=== PATIENT | female | born 1990 | race Caucasian/White ===

== ENCOUNTER 2016-07-08 18:14 | Inpatient (IN) | payer OTHER ==
[2016-07-08] MEDS ORDERED: ACETAMINOPHEN 325 MG TABLET PO ONE (19:33)
[2016-07-08] MEDS ORDERED: NORMAL SALINE 1000 ML 1,000 ML IV ONE ×2 (19:33→22:36)
--- NOTE | 2016-07-08 19:35 | ER Document Report ---
ED Medical Screen (RME) - General Stated Complaint: FLU LIKE SYMPTOMS Mode of Arrival: Ambulatory Information source: Patient Notes: Patient presents complaining of abdominal cramping, fever and diarrhea. Symptoms started yesterday. No additional sick contacts. Patient claims of nausea without any vomiting. Pt complains of pain with standing up on the way. hx: None I have greeted and performed a rapid initial assessment of this patient. A comprehensive ED assessment and evaluation of the patient, analysis of test results and completion of the medical decision making process will be conducted by additional ED providers. - Related Data Allergies/Adverse Reactions: erythromycin base [From Pediazole] Allergy (Verified 07/08/16 19:32) nitrofurantoin [From Macrobid] Allergy (Verified 07/08/16 19:32) sulfisoxazole [From Pediazole] Allergy (Verified 07/08/16 19:32) Physical Exam - Vital signs Vitals: Temp Pulse Resp BP Pulse Ox 102.8 F H 131 H 14 126/96 H 100 07/08/16 18:20 07/08/16 18:20 07/08/16 18:20 07/08/16 18:20 07/08/16 18:20 - Abdominal Tenderness: Tender - Periumbilical Notes: Patient declines sitting upright fully due to discomfort. Course - Vital Signs Vital signs: Temp Pulse Resp BP Pulse Ox 102.8 F H 131 H 14 126/96 H 100 07/08/16 18:20 07/08/16 18:20 07/08/16 18:20 07/08/16 18:20 07/08/16 18:20
[2016-07-08 21:05] LABS: HEMATOCRIT 42.9 % (36.0-47.0); HEMOGLOBIN 14.6 g/dL (12.0-15.5); HGB HCT DIFFERENCE 0.9; MEAN CORPUSCULAR HEMOGLOBIN 28.7 pg (27.0-33.4); MEAN CORPUSCULAR HGB CONC 34.1 g/dL (32.0-36.0); MEAN CORPUSCULAR VOLUME 84 fl (80-97); RED CELL DISTRIBUTION WIDTH 12.8 % (11.5-14.0); WHITE BLOOD COUNT 25.1 10^3/uL (4.0-10.5)
--- NOTE | 2016-07-08 21:05 | ER Document Report ---
ED Fever - General Time seen by provider: 21:00 Mode of Arrival: Ambulatory Information source: Patient TRAVEL OUTSIDE OF THE [place] IN LAST 30 DAYS: No - HPI Patient complains to provider of: fever Associated symptoms: Other - See above <OANH ESPITIA - Last Filed: 07/08/16 23:15> <DAPHNE BASHIR - Last Filed: 07/09/16 03:17> - General Chief Complaint: Fever Stated Complaint: fever Notes: Patient is a 25 year old female who presents to the emergency department complaining of a fever onset last night. Patient reports the fever was between 103.3 and 104.9 last night. Patient also complains of abdominal cramping, belly "rumbling", bloating, diarrhea (liquid), nausea, headache, intermittent cough. Patient denies sore throat, rhinorrhea, dysuria, back pain, vomiting, and . Patient states that she has eaten a small amount today and that she has not urinated much. Patient reports she traveled to [place] last month and has had long driving trips recently. (OANH ESPITIA) - Related Data Allergies/Adverse Reactions: erythromycin base [From Pediazole] Allergy (Verified 07/08/16 19:32) nitrofurantoin [From Macrobid] Allergy (Verified 07/08/16 19:32) sulfisoxazole [From Pediazole] Allergy (Verified 07/08/16 19:32) Past Medical History - General Information source: Patient - Social History Smoking Status: Never Smoker Chew tobacco use (# tins/day): No Frequency of alcohol use: Social Drug Abuse: None Family History: Reviewed & Not Pertinent Surgical Hx: Negative - Immunizations Hx Diphtheria, Pertussis, Tetanus Vaccination: - unsure <OANH ESPITIA - Last Filed: 07/08/16 23:15> Review of Systems - Review of Systems Constitutional: See HPI, Fever EENT: denies: Nose congestion, Throat pain Cardiovascular: No symptoms reported Respiratory: No symptoms reported Gastrointestinal: See HPI, Abdomen distended - bloating, Abdominal pain, Diarrhea, Nausea. denies: Vomiting Genitourinary: denies: Dysuria Female Genitourinary: No symptoms reported Musculoskeletal: denies: Back pain Skin: No symptoms reported Hematologic/Lymphatic: No symptoms reported Neurological/Psychological: See HPI, Headaches -: Yes All other systems reviewed and negative <OANH ESPITIA - Last Filed: 07/08/16 23:15> Physical Exam - Vital signs Interpretation: Tachycardic, Febrile - General General appearance: Appears well, Alert - HEENT Head: Normocephalic, Atraumatic - Respiratory Respiratory status: No respiratory distress Chest status: Nontender Breath sounds: Normal Chest palpation: Normal - Cardiovascular Rhythm: Tachycardia Heart sounds: Normal auscultation Murmur: No - Abdominal Inspection: Normal Distension: No distension Bowel sounds: Normal Tenderness: Tender - Mild diffuse tenderness to palpation Organomegaly: No organomegaly - Extremities General upper extremity: Normal inspection General lower extremity: Normal inspection - Neurological Neuro grossly intact: Yes Cognition: Normal Orientation: AAOx4 [place] Coma Scale Eye Opening: Spontaneous [place] Coma Scale Verbal: Oriented [place] Coma Scale Motor: Obeys Commands [place] Coma Scale Total: 15 Speech: Normal - Psychological Associated symptoms: Normal affect, Normal mood - Skin Skin Temperature: Warm Skin Moisture: Dry Skin Color: Normal <OANH ESPITIA - Last Filed: 07/08/16 23:15> Course - Laboratory Result Diagrams: 07/08/16 19:55 07/08/16 21:15 <OANH ESPITIA - Last Filed: 07/08/16 23:15> - Laboratory Result Diagrams: 07/08/16 19:55 07/08/16 21:15 <DAPHNE BASHIR - Last Filed: 07/09/16 03:17> - Re-evaluation Re-evalutation: 07/08/16 22:52 Patient is a 25-year-old female who comes in with some mild abdominal cramping and diarrhea. Patient with leukocytosis. Patient given fluids and Zofran. Zofran did not help. Patient will be given Reglan. 07/09/16 01:55 Patient is feeling better after Reglan. CT showing pancolitis. Patient has had stool culture sent. Patient will be started on Cipro Flagyl. Patient is still having voluminous diarrhea. Patient acidotic on blood work. Will be admitted for dehydration. 07/09/16 03:00 Discussed with the hospitalist service. Stable at time of admission. (DAPHNE BASHIR) - Vital Signs Vital signs: Temp Pulse Resp BP Pulse Ox 102.8 F H 131 H 20 105/61 98 07/08/16 18:20 07/08/16 18:20 07/09/16 02:27 07/09/16 02:27 07/09/16 02:27 - Laboratory Laboratory results interpreted by me: 07/08/16 07/08/16 07/08/16 19:55 21:15 21:15 WBC 25.1 H Seg Neuts % (Manual) 91 H Lymphocytes % (Manual) 3 L Monocytes % (Manual) 1 L Abs Neuts (Manual) 23.8 H PT 20.6 H APTT 38.3 H VBG pCO2 27.9 L VBG HCO3 16.9 L Potassium Chloride Carbon Dioxide Total Protein Albumin Urine Protein Urine Ketones Urine Blood Stool for White Cells 07/08/16 07/08/16 07/08/16 21:15 21:50 21:50 WBC Seg Neuts % (Manual) Lymphocytes % (Manual) Monocytes % (Manual) Abs Neuts (Manual) PT APTT VBG pCO2 VBG HCO3 Potassium 3.3 L Chloride 108 H Carbon Dioxide 16 L Total Protein 6.0 L Albumin 3.2 L Urine Protein 30 H Urine Ketones 20 H Urine Blood MODERATE H Stool for White Cells MODERATE H Critical Care Note - Critical Care Note Total time excluding time spent on procedures (mins): 35 - evaluation and management of fever, dehydration, multiple re-evaluations, coordination of admission, counseling of patient <DAPHNE BASHIR - Last Filed: 07/09/16 03:17> Discharge <OANH ESPITIA - Last Filed: 07/08/16 23:15> - Discharge Admitting Provider: Hospitalist Unit Admitted: Medical Floor <DAPHNE BASHIR - Last Filed: 07/09/16 03:17> - Discharge Clinical Impression: Pancolitis, Dehydration Condition: Stable Disposition: ADMITTED INPATIENT Scribe Attestation: 07/09/16 03:17 I personally performed the services described in the documentation, reviewed and edited the documentation which was dictated to the scribe in my presence, and it accurately records my words and actions. (DAPHNE BASHIR) Scribe Documentation - Scribe Written by Scribe:: juaquin Zafar, 07/08/16, [id number] acting as scribe for :: Seth <OANH ESPITIA - Last Filed: 07/08/16 23:15>
[2016-07-08] MEDS ORDERED: ONDANSETRON HCL INJ/PF 4 MG/2 ML SDV IV ONE (21:07)
[2016-07-08] MEDS ORDERED: RINGERS SOLUTION,LACTATED 1,000 ML IV ONE (21:11)
[2016-07-08 21:30] LABS: BAND NEUTROPHILS % (MANUAL) 4 % (3-5); BASOPHILS % (MANUAL) 0 % (0-2); EOSINOPHILS % (MANUAL) 0 % (0-6); LYMPHOCYTES % (MANUAL) 3 % (13-45); TOTAL CELLS COUNTED 100
[2016-07-08 21:32] LABS: VENOUS BLOOD BASE EXCESS -6.4 mmol/L; VENOUS BLOOD HCO3 16.9 mmol/L (20-32); VENOUS BLOOD PCO2 27.9 mmHg (35-63); VENOUS BLOOD PH 7.4 (7.30-7.42)
[2016-07-08 21:34] LABS: RBC MORPHOLOGY COMMENT NORMO-CYTIC/CHROMIC; TOXIC GRANULATION SLIGHT
[2016-07-08 21:37] LABS: PROTHROMBIN TIME 20.6 SEC (11.4-15.4)
[2016-07-08 21:38] LABS: PARTIAL THROMBOPLASTIN TIME 38.3 SEC (23.5-35.8)
[2016-07-08 21:43] LABS: ALANINE AMINOTRANSFERASE 30 U/L (9-52); ALBUMIN 3.2 g/dL (3.5-5.0); ALKALINE PHOSPHATASE 56 U/L (38-126); ANION GAP 14 (5-19); ASPARTATE AMINO TRANSFERASE 16 U/L (14-36); BILIRUBIN,DIRECT 0.2 mg/dL (0.0-0.4); BILIRUBIN,TOTAL 0.7 mg/dL (0.2-1.3); BLOOD UREA NITROGEN 12 mg/dL (7-20); CALCIUM 8.4 mg/dL (8.4-10.2); CARBON DIOXIDE 16 mmol/L (22-30); CHLORIDE 108 mmol/L (98-107); CREATININE RESULT 0.78 mg/dL (0.52-1.25); GLUCOSE 98 mg/dL (75-110); LIPASE 32.2 U/L (23-300); POTASSIUM 3.3 mmol/L (3.6-5.0); SODIUM 137.6 mmol/L (137-145)
[2016-07-08 22:19] LABS: APPEARANCE,URINE SLIGHTLY-CLOUDY; BILIRUBIN,URINE NEGATIVE (NEGATIVE); GLUCOSE, URINE NEGATIVE (NEGATIVE); KETONES,URINE 20 mg/dL (NEGATIVE); LEUKOCYTE ESTERASE,URINE NEGATIVE (NEGATIVE); NITRITE,URINE NEGATIVE (NEGATIVE); PROTEIN,URINE 30 mg/dL (NEGATIVE); URINE SPECIFIC GRAVITY 1.027; UROBILINOGEN,URINE NEGATIVE mg/dL (<2.0)
[2016-07-08] MEDS ORDERED: METOCLOPRAMIDE HCL INJ/PF 10 MG/2 ML SDV IV ONE (22:52)
[2016-07-09] MEDS ORDERED: CIPROFLOXACIN 400 MG/D5W RTU 200 ML IV ONE (01:48)
[2016-07-09] MEDS ORDERED: METRONIDAZOLE 500 MG/NS RTU 100 ML IV ONE (01:48)
[2016-07-09] MEDS ORDERED: RINGERS SOLUTION,LACTATED 1,000 ML IV ONE (01:55)
[2016-07-09] MEDS ORDERED: DICYCLOMINE HCL 20 MG TABLET PO ONE (02:06)
[2016-07-09 03:57] LABS: ABSOLUTE LYMPHOCYTES (AUTO) 1.8 10^3/uL (0.5-4.7); ABSOLUTE MONOCYTES (AUTO) 0.5 10^3/uL (0.1-1.4); ABSOLUTE NEUT (AUTO) 12.6 10^3/uL (1.7-8.2); BASOPHILS % (AUTO) 0.2 % (0-2); EOSINOPHILS % (AUTO) 0.1 % (0-6); HGB HCT DIFFERENCE 1.3; LYMPHOCYTES % (AUTO) 11.8 % (13-45); MEAN CORPUSCULAR HEMOGLOBIN 28.8 pg (27.0-33.4); MEAN CORPUSCULAR HGB CONC 34.5 g/dL (32.0-36.0); MEAN CORPUSCULAR VOLUME 84 fl (80-97); MONOCYTES % (AUTO) 3.1 % (3-13); RED BLOOD COUNT 4.19 10^6/uL (3.72-5.28); RED CELL DISTRIBUTION WIDTH 12.6 % (11.5-14.0); SEGMENTED NEUTROPHILS % (AUTO) 84.8 % (42-78); WHITE BLOOD COUNT 14.9 10^3/uL (4.0-10.5)
[2016-07-09 04:00] LABS: ANION GAP 10 (5-19); BLOOD UREA NITROGEN 8 mg/dL (7-20); CALCIUM 8.2 mg/dL (8.4-10.2); CARBON DIOXIDE 18 mmol/L (22-30); CHLORIDE 114 mmol/L (98-107); CREATININE RESULT 0.66 mg/dL (0.52-1.25); GLUCOSE 104 mg/dL (75-110); POTASSIUM 3.3 mmol/L (3.6-5.0); SODIUM 142.1 mmol/L (137-145)
[2016-07-09] MEDS ORDERED: DEXTROSE 5%-NORMAL SALINE 1,000 ML IV PRN ×2 (04:00→08:59)
[2016-07-09] MEDS ORDERED: RINGERS SOLUTION,LACTATED 2,000 ML IV ONE (04:00)
[2016-07-09] MEDS ORDERED: PROMETHAZINE HCL INJ 25 MG/1 ML VIAL IV PRN (04:05)
--- NOTE | 2016-07-09 04:08 | PDOC H&P ---
History of Present Illness Admission Date/PCP: 07/09/16 02:16 [facility] Patient complains of: abd pain, diarrhea, fever History of Present Illness: MARK MANNING is a 25 year old female with history of recurrent urinary tract infections, but basically a not overly remarkable chronic medical history otherwise who presents to the emergency room for evaluation of approximate 24-hour history of fever to 104.9, along with cramping "rumbling" abdominal pain, discomfort, and bloating, nonbloody diarrhea, nausea with dry heaves, headache, and neck pain. Primary complaint has been any diarrhea, fever, abdominal pain, headache and neck pain. Patient has been discussed with emergency room physician who evaluated the patient. Was diagnosed with a herpes infection 2 weeks ago and started on what sounds to be an antiviral, having been given samples at the physician's office. Patient uncertain as to exactly which medication she was given. Has 2 or 3 doses left. 2 nights ago, ate at a buffet with multiple coworkers. Stated the food tasted okay. Uncertain if any coworkers having similar complaints. Travel to [place] last month. No problems until 2 nights ago, along with the herpes diagnosis 2 weeks ago. No personal or family history of Crohn's disease, ulcerative colitis, irritable bowel syndrome, or other GI tract issues. No history of MRSA or C. difficile. No recent antibiotic, other than the above-noted antiviral.. Laboratory results are listed in [employer] and are reviewed. X-ray summary results are listed below, with full report(s) reviewed. . EKG reviewed. No old EKG available for comparison. Social history/personal habits: Operated from her . 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 Occasional marijuana use. No tobacco use. When asked whether she drinks beer, whiskey, or wine, she stated "all the above." When I asked her how often she drank alcohol, she stated "too often, but not every day." Allergies/adverse reactions NKDA. Home medications no chronic daily medications. See above comments about recent probable antiviral she's been taking. REVIEW OF SYSTEMS: Constitutional: See history and present illness. Eyes: No current vision complaints. ENT: No swallowing problems or complaints. Other than mild sore throat over the last day or so. No hearing problems or complaints. Pulmonary: No current complaints. Cardiovascular: No current complaints, including chest pain. Gastrointestinal: See history and present illness. Skin: No current complaints, including rashes. Hematologic: Easy bruising. "Only when I drink." Neurologic: No current complaints, including numbness or tingling. Musculoskeletal: No current complaints, including painful joints. Psychiatric: No current complaints, including anxiety or depression. Endocrine: No current complaints, including polyuria. Genitourinary: No current complaints, including dysuria. PHYSICAL EXAMINATION: Female emergency room nurse Charlotte is present. Boyfriend is present. 5 feet 8 inches tall. 68.3 kg. BMI 22.9 kg/m. Temperature 102.6 earlier; skin feels warm but not as febrile presently. Blood pressure 106/57. Respirations are 20 and unlabored. Pulse 77 and regular. 99% saturation on room air. Well-nourished well-developed female appearing approximately her stated age. Appears not to feel very well. Slightly fatigued. Otherwise, pleasant awake alert and cooperative. Skin is warm and dry. No grossly obvious evidence of rash in areas of skin examined. No subcutaneous nodules palpated. ENT: Hearing grossly normal to normal conversation. Tongue midline on protrusion pink and slightly tacky. Eyes: No scleral icterus. Pupils equal and reactive to light at 4 mm. [place] conjunctivae. Neck is supple with mild tenderness to gentle active range of motion and palpation. Midline trachea. No palpable thyroid nodule mass enlargement or tenderness. Lymphatic: No palpable cervical or clavicular nodes. Neck and lymphatic exams limited by patient body habitus. Psychiatric: Reasonable insight into acute and chronic medical issues. Oriented to time location and why here. Lungs: Auscultation reveals clear and equal breath sounds bilaterally. No use of accessory respiratory muscles. Cardiovascular: Heart regular rate and rhythm, without gallop murmur or rub. No carotid or abdominal aortic bruits. No ankle or pedal edema. palpable dorsalis pedis pulses. Abdomen: soft, , slightly distended with positive bowel sounds. Mild diffuse tenderness, not to overly remarkable. Certainly no evidence of guarding or peritoneal signs. Unable to adequately evaluate abdomen for masses or organomegaly due to distention and discomfort.. Extremities: Feet are warm and dry. No calf tenderness to compression. No grossly obvious visual evidence of calf swelling. Gentle manipulation of lower extremities fails to reveal any obvious evidence of injury or instability to knees hips or ankles. Neurologic: Moves upper extremities grossly normally. Patellar reflexes absent. Absent Babinski. Light touch is intact at feet. Dorsiflexion and plantarflexion of feet 5 / 5 and symmetric. Past Medical History Cardiac Medical History: Denies: Congestive Heart Failure, DVT, Myocardial Infarction, Hyperlipidema, Hypertension, Pulmonary Embolism Pulmonary Medical History: Denies: Asthma, Chronic Obstructive Pulmonary Disease (COPD), Sleep Apnea EENT Medical History: Denies: Eyes, Ears, Throat Neurological Medical History: Denies: Hemorrhagic CVA, Ischemic CVA, Seizures Endocrine Medical History: Denies: Diabetes Mellitus Type 1, Diabetes Mellitus Type 2, Hyperthyroidism, Hypothyroidism Renal/ Medical History: Reports: Other - recurrent UTI's GI Medical History: Denies: Cirrhosis, Crohn's Disease, Gastroesophageal Reflux Disease, Hepatitis, Peptic Ulcer Disease, Ulcerative Colitis Musculoskeltal Medical History: Denies: Arthritis Skin Medical History: Reports: None Psychiatric Medical History: Reports: Alcohol Dependency Denies: Depression, General Anxiety Disorder Infectious Medical History: Denies: Clostridium Difficile, Hepatitis B, Hepatitis C, Methicillin- Resistant Staph Aureus Past Surgical History Past Surgical History: Reports: None Social History Information Source: Patient, Emergency Med Personnel, [facility] Records Smoking Status: Never Smoker Frequency of Alcohol Use: Social - see comments, Hx & PI, 07/08/16 Drugs: Marijuana - Advance Directive Resuscitation Status: Full Code Surrogate healthcare decision maker:: mother Family History Family History: Reviewed & Not Pertinent Parental Family History Reviewed: Yes Children Family History Reviewed: NA Sibling(s) Family History Reviewed.: Yes Medication/Allergy Home Medications: No Home Medications 07/09/16 Allergies/Adverse Reactions: erythromycin base [From Pediazole] Allergy (Verified 07/08/16 19:32) nitrofurantoin [From Macrobid] Allergy (Verified 07/08/16 19:32) sulfisoxazole [From Pediazole] Allergy (Verified 07/08/16 19:32) Physical Exam Vital Signs: Temp Pulse Resp BP Pulse Ox 97.7 F 79 18 106/57 L 98 07/09/16 03:30 07/09/16 03:30 07/09/16 03:30 07/09/16 03:30 07/09/16 03:30 Results Impressions: Abdomen/Pelvis CT 07/09/16 00:00 IMPRESSION: Pancolitis, this may be secondary to acute infection, inflammation or ischemia. Is there any history of ulcerative colitis or Crohn's disease? Evaluation with colonoscopy may be worthwhile. Mild circumferential wall thickening of the urinary bladder, may be due to underdistention versus cystitis. Please correlate with laboratory values/ urinalysis. Smaller size left kidney with cortical scarring, may represent sequela of prior infections. Trace ascites. Hepatomegaly. Assessment & Plan - Diagnosis (1) Neck pain Is this a current diagnosis for this admission?: YesPlan: Uncertain significance. Follow clinically. When necessary pain medication. (2) Alcohol use Is this a current diagnosis for this admission?: YesPlan: Observe for signs of alcohol withdrawal. (3) Herpes Is this a current diagnosis for this admission?: YesPlan: Order entered to obtain the name dosage and frequency of the probable antiviral she has been taking. (4) Hypokalemia Is this a current diagnosis for this admission?: YesPlan: Potassium replacement, with follow-up chemistry. (5) Elevated partial thromboplastin time (PTT) Is this a current diagnosis for this admission?: YesPlan: Uncertain significance. Repeat coags. (6) Acidosis Is this a current diagnosis for this admission?: YesPlan: Serial labs. Should clear with treatment of her pancolitis, including vigorous hydration. (7) Pancolitis Is this a current diagnosis for this admission?: YesPlan: Vigorous IV fluid hydration. Ice chips only. Strict intake and output. Intravenous Flagyl and Cipro. I have strongly encouraged patient not to get out of bed without notifying staff , to avoid a fall with injury. Knee high SCDs for DVT prophylaxis, along with subcutaneous Lovenox . Impression and plans were discussed with patient, who concurs. Time spent in evaluation and management of patient: 58 minutes. (8) Dehydration Is this a current diagnosis for this admission?: Yes - Inpatient Certification Based on my medical assessment, after consideration of the patient's comorbidities, presenting symptoms, or acuity I expect that the services needed warrant INPATIENT care.: Yes I certify that my determination is in accordance with my understanding of Medicare's requirements for reasonable and necessary INPATIENT services [42 CFR 412.3e].: Yes Medical Necessity: Need Close Monitoring Due to Risk of Patient Decompensation, Need For IV Fluids, Need For Continuous Telemetry Monitoring, Need for IV Antibiotics, Risk of Complication if Not Cared For in Hospital, Risk of Diagnosis Which Will Require Inpatient Eval/Care/Monitoring Post Hospital Care: D/C or Transfer Summary
[2016-07-09 04:13] LABS: HEMOGLOBIN 12.1 g/dL (12.0-15.5)
[2016-07-09 04:47] LABS: ADD ON TESTING BLD IN LAB ACKNOWLEDGE
[2016-07-09 04:59] LABS: MAGNESIUM 1.7 mg/dL (1.6-2.3)
[2016-07-09 05:19] LABS: PARTIAL THROMBOPLASTIN TIME 40.4 SEC (23.5-35.8)
--- NOTE | 2016-07-09 07:19 | EKG REPORT ---
SEVERITY:- ABNORMAL ECG - SINUS TACHYCARDIA VENTRICULAR PREMATURE COMPLEX NONSPECIFIC T ABNORMALITIES, DIFFUSE LEADS : Confirmed by: Jaden So MD 09-Jul-2016 07:18:38
--- NOTE | 2016-07-09 08:28 | Operative Report ---
Operative Report DATE OF SURGERY: 07/09/16 PREOPERATIVE DIAGNOSIS: Critical need for intravenous access. Pancolitis. POSTOPERATIVE DIAGNOSIS: Critical need for intravenous access, pancolitis. OPERATION: Right subclavian triple-lumen central venous access SURGEON: JEREMIAS BECKETT ANESTHESIA: Local TISSUE REMOVED OR ALTERED: None COMPLICATIONS: None ESTIMATED BLOOD LOSS: minimal INTRAOPERATIVE FINDINGS: None PROCEDURE: Informed consent was obtained. Procedure was done in the emergency department. Patient's right neck and anterior chest was prepped and draped in usual sterile fashion. Local anesthetic was administered. The right subclavian vein was entered without difficulty. Guidewire was placed into the central circulation. Triple-lumen central venous catheter was placed via the Seldinger technique without difficulty. The ports withdrew blood and flushed easily. The catheter was sutured in place. Sterile dressings were applied. Stat portable chest x-ray was ordered. Patient tolerated procedure well with no apparent complications.
[2016-07-09] MEDS: POTASSI CL 20 MEQ/50 ML RIDER 20 MEQ/50 ML RTUPB IV SCH ×2 (09:20→11:19)
[2016-07-09] MEDS: ACETAMINOPHEN 325 MG TABLET PO PRN (09:28)
[2016-07-09] MEDS: ENOXAPARIN SODIUM INJ 40 MG/0.4 ML DISP.SYRIN SUBCUT SCH (09:31)
[2016-07-09] MEDS: LACTOBACILLUS ACIDOPHILUS 250 MG TAB PO SCH ×2 (10:31→17:51)
[2016-07-09] MEDS: CIPROFLOXACIN 400 MG/D5W RTU 200 ML IV SCH ×2 (10:31→22:04)
[2016-07-09] MEDS: FAMOTIDINE INJ/PF 20 MG/2 ML SDV IV SCH ×2 (10:31→22:04)
[2016-07-09 10:54] LABS: ADD HIVPANEL? NO; HIV (1 AND 2) ANTIBODY NEGATIVE (NEGATIVE)
[2016-07-09] MEDS: METRONIDAZOLE 500 MG/NS RTU 100 ML IV SCH ×2 (11:18→17:53)
[2016-07-09] MEDS ORDERED: PHYTONADIONE 5 MG TABLET PO ONE (15:13)
--- NOTE | 2016-07-09 15:16 | PDOC PROGRESS REPORT ---
Subjective Progress Note for:: 07/09/16 Subjective:: Reason for visit: Follow-up colitis Hospital course: Per H&P "MARK MANNING is a 25 year old female with history of recurrent urinary tract infections, but basically a not overly remarkable chronic medical history otherwise who presents to the emergency room for evaluation of approximate 24-hour history of fever to 104.9, along with cramping "rumbling" abdominal pain, discomfort, and bloating, nonbloody diarrhea , nausea with dry heaves, headache, and neck pain. Primary complaint has been any diarrhea, fever, abdominal pain, headache and neck pain. Patient has been discussed with emergency room physician who evaluated the patient. Was diagnosed with a herpes infection 2 weeks ago and started on what sounds to be an antiviral, having been given samples at the physician's office. Patient uncertain as to exactly which medication she was given. Has 2 or 3 doses left. 2 nights ago, ate at a [employer] with multiple coworkers. Stated the food tasted okay. Uncertain if any coworkers having similar complaints. Travel to [place] last month. No problems until 2 nights ago, along with the herpes diagnosis 2 weeks ago. No personal or family history of Crohn's disease, ulcerative colitis, irritable bowel syndrome, or other GI tract issues. No history of MRSA or C. difficile. No recent antibiotic, other than the above- noted antiviral." Clarification of the above, the patient's mother is now reporting a history of "ischemic colitis", onset in her early 40s. Further details, after her buffet Tuesday night she awoke the next morning feeling "hung over" and admits to drinking heavily that night. However her symptoms did not pass as they usually do and she started to spike temperatures to 104.9 at home. She then developed diffuse myalgias and arthralgias and thought she had "the flu". She developed nausea but no emesis, states her abdomen felt bloated and she started having explosive diarrhea with 6-7 bowel movements over the last 12 hours that look like "her water" without melena, hematochezia. She took some Imodium which actually made her bloating worse and did not slow her stools. She states her genital herpes have cleared. She denies vaginal discharge. She states her sexual partner is clean. Laboratory evaluation so far shows negative C. difficile, negative influenza A and B, negative HIV. Stool has moderate amount of WBCs. Urinalysis shows some protein and ketones with a moderate amount of blood and a couple of WBCs, urine culture initially showing 50,000 colony forming units of a gram-negative zachary, species and susceptibility still pending. C-reactive protein is quite elevated at 218. Serum H CG is negative. Magnesium is 1.7. And she has a significant leukocytosis at 25,000 with a left shift 4% bands. CT scan of the abdomen and pelvis shows a diffuse pancolitis and hepatomegaly. Hepatitis ABC screen is still pending. She underwent successful subclavian placement of triple-lumen catheter this morning by general surgery due to poor vascular access. Subjective: She continues to complain of general malaise, myalgias, arthralgias , diarrhea, nausea without emesis and still feels feverish. She denies chest pain, palpitations, dyspnea, rigors, abdominal pain. ROS: per HPI plus a total of 10 systems reviewed, pertinent positives and negatives noted above, remaining systems negative. Physical Exam Vital Signs: Temp Pulse Resp BP Pulse Ox 97.7 F 79 13 100/73 99 07/09/16 03:30 07/09/16 03:30 07/09/16 14:01 07/09/16 14:00 07/09/16 14:01 EXAM GENERAL: NAD; well developed, well nourished; no obese; alert and oriented to person, place, time, situation HEENT: normocephalic, atraumatic; no conjunctival injection, no scleral icterus ; oral mucosa dry; no oral lesions RESPIRATORY: no accessory muscle use, no increased WOB, good air entry bilaterally; no wheezes, rales, rhonchi; no inspiratory crackles CARDIO: no JVD; RRR; no systolic murmur; no tachycardia GI: soft; nondistended; normal bowel sounds; nontender including right upper quadrant; no rebound, rigidity, guarding VASCULAR: no carotid bruit; no abdominal bruit; no pallor; 2+ radial, DP pulse ; normal capillary refill EXTREMITIES: no calf tender; no palpable cords in calf; no clubbing, cyanosis , pedal edema PSYCH: normal affect, normal mood SKIN: warm; moist; no petechiae; no telengectasias; no jaundice; no rash Results Laboratory Results: 07/09/16 09:35 C-Reactive Protein 218.0 H Labs reviewed, see history of present illness Impressions: Abdomen/Pelvis CT 07/09/16 00:00 IMPRESSION: Pancolitis, this may be secondary to acute infection, inflammation or ischemia. Is there any history of ulcerative colitis or Crohn's disease? Evaluation with colonoscopy may be worthwhile. Mild circumferential wall thickening of the urinary bladder, may be due to underdistention versus cystitis. Please correlate with laboratory values/ urinalysis. Smaller size left kidney with cortical scarring, may represent sequela of prior infections. Trace ascites. Hepatomegaly. Chest X-Ray 07/09/16 00:00 IMPRESSION: NO PNEUMOTHORAX FOLLOWING CENTRAL LINE PLACEMENT. NO ACUTE FINDINGS. Status: Imported from PACS Assessment & Plan - Diagnosis (1) Pancolitis Is this a current diagnosis for this admission?: YesPlan: Unclear etiology but resumed infectious due to history and significant fecal leukocytosis. Continue antibiotics. Awaiting stool culture. (2) Sepsis Qualifiers: Sepsis type: sepsis due to unspecified organism Qualified Code(s): A41.9 - Sepsis, unspecified organism Is this a current diagnosis for this admission?: YesPlan: Evidence by leukocytosis, tachypnea and a source. Treat with IV fluids and antibiotics. (3) Coagulopathy Is this a current diagnosis for this admission?: YesPlan: Likely related to the above. No evidence of liver dysfunction aside from the coagulopathy. Provide empiric vitamin K in case it's related to GI losses and poor nutrition over the course of the last couple of weeks. Continue to monitor INR. (4) Metabolic acidosis with normal anion gap and bicarbonate losses Is this a current diagnosis for this admission?: YesPlan: Likely related to GI losses. Continue to monitor. Treat with IV fluids. (5) Hypokalemia Is this a current diagnosis for this admission?: YesPlan: Likely due to GI losses, monitor and replace both potassium and magnesium. - Time Time Spent with patient: 25-34 minutes Medications reviewed and adjusted accordingly: Yes Anticipated discharge: Home Within: within 48 hours
[2016-07-10] MEDS: ACETAMINOPHEN 325 MG TABLET PO PRN ×2 (00:52→19:59)
[2016-07-10] MEDS: METRONIDAZOLE 500 MG/NS RTU 100 ML IV SCH ×3 (01:52→18:28)
[2016-07-10 07:04] LABS: ABSOLUTE EOSINOPHILS # (AUTO) 0.2 10^3/uL (0.0-0.6); ABSOLUTE LYMPHOCYTES (AUTO) 2.1 10^3/uL (0.5-4.7); ABSOLUTE MONOCYTES (AUTO) 0.6 10^3/uL (0.1-1.4); ABSOLUTE NEUT (AUTO) 4.8 10^3/uL (1.7-8.2); BASOPHILS % (AUTO) 0.4 % (0-2); EOSINOPHILS % (AUTO) 2.9 % (0-6); HEMATOCRIT 31.9 % (36.0-47.0); HEMOGLOBIN 11.3 g/dL (12.0-15.5); MEAN CORPUSCULAR HEMOGLOBIN 29.4 pg (27.0-33.4); MEAN CORPUSCULAR HGB CONC 35.5 g/dL (32.0-36.0); MEAN CORPUSCULAR VOLUME 83 fl (80-97); MONOCYTES % (AUTO) 8.2 % (3-13); RED BLOOD COUNT 3.85 10^6/uL (3.72-5.28); RED CELL DISTRIBUTION WIDTH 13.1 % (11.5-14.0); SEGMENTED NEUTROPHILS % (AUTO) 61.5 % (42-78); WHITE BLOOD COUNT 7.9 10^3/uL (4.0-10.5)
[2016-07-10 07:28] LABS: ALANINE AMINOTRANSFERASE 23 U/L (9-52); ALBUMIN 2.8 g/dL (3.5-5.0); ALKALINE PHOSPHATASE 46 U/L (38-126); ANION GAP 10 (5-19); ASPARTATE AMINO TRANSFERASE 14 U/L (14-36); BILIRUBIN,DIRECT 0.1 mg/dL (0.0-0.4); BILIRUBIN,TOTAL 0.4 mg/dL (0.2-1.3); BLOOD UREA NITROGEN 3 mg/dL (7-20); CALCIUM 8.6 mg/dL (8.4-10.2); CARBON DIOXIDE 22 mmol/L (22-30); CHLORIDE 111 mmol/L (98-107); CREATININE RESULT 0.61 mg/dL (0.52-1.25); GLUCOSE 94 mg/dL (75-110); MAGNESIUM 1.8 mg/dL (1.6-2.3); PHOSPHORUS 2.7 mg/dL (2.5-4.5); POTASSIUM 3.2 mmol/L (3.6-5.0); SODIUM 142.9 mmol/L (137-145); TOTAL PROTEIN 5.4 g/dL (6.3-8.2)
[2016-07-10 08:21] LABS: C-REACTIVE PROTEIN 136.8 mg/L (<10.0)
[2016-07-10] MEDS: LACTOBACILLUS ACIDOPHILUS 250 MG TAB PO SCH ×2 (09:43→18:28)
[2016-07-10] MEDS: FAMOTIDINE INJ/PF 20 MG/2 ML SDV IV SCH ×2 (09:43→21:23)
[2016-07-10] MEDS: CIPROFLOXACIN 400 MG/D5W RTU 200 ML IV SCH ×2 (09:45→21:23)
[2016-07-10] MEDS: ENOXAPARIN SODIUM INJ 40 MG/0.4 ML DISP.SYRIN SUBCUT SCH (09:50)
[2016-07-10] MEDS ORDERED: POTASSIUM CHLORIDE 10 MEQ TABLET.SA PO ONE (10:51)
[2016-07-10] MEDS: POTASSI CL 20 MEQ/D5NS 1L 1,000 ML IV PRN (11:00)
--- NOTE | 2016-07-10 11:41 | PDOC PROGRESS REPORT ---
Subjective Progress Note for:: 07/10/16 Physical Exam Vital Signs: Temp Pulse Resp BP Pulse Ox 97.9 F 72 14 99/57 L 99 07/10/16 07:54 07/10/16 07:54 07/10/16 07:54 07/10/16 07:54 07/10/16 07:54 Intake & Output 07/09/16 07/10/16 07/11/16 06:59 06:59 06:59 Intake Total 3000 Output Total 600 Balance 2400 Weight 74.8 kg Results Laboratory Results: 07/10/16 06:50 07/10/16 06:50 07/10/16 07/10/16 06:50 06:50 WBC 7.9 RBC 3.85 Hgb 11.3 L Hct 31.9 L MCV 83 MCH 29.4 MCHC 35.5 RDW 13.1 Plt Count 139 L Seg Neutrophils % 61.5 Lymphocytes % 27.0 Monocytes % 8.2 Eosinophils % 2.9 Basophils % 0.4 Absolute Neutrophils 4.8 Absolute Lymphocytes 2.1 Absolute Monocytes 0.6 Absolute Eosinophils 0.2 Absolute Basophils 0.0 Sodium 142.9 Potassium 3.2 L Chloride 111 H Carbon Dioxide 22 Anion Gap 10 BUN 3 L Creatinine 0.61 Est GFR ( Amer) > 60 Est GFR (Non-Af Amer) > 60 Glucose 94 Calcium 8.6 Phosphorus 2.7 Magnesium 1.8 Total Bilirubin 0.4 AST 14 ALT 23 Alkaline Phosphatase 46 C-Reactive Protein 136.8 H Total Protein 5.4 L Albumin 2.8 L Impressions: Abdomen/Pelvis CT 07/09/16 00:00 IMPRESSION: Pancolitis, this may be secondary to acute infection, inflammation or ischemia. Is there any history of ulcerative colitis or Crohn's disease? Evaluation with colonoscopy may be worthwhile. Mild circumferential wall thickening of the urinary bladder, may be due to underdistention versus cystitis. Please correlate with laboratory values/ urinalysis. Smaller size left kidney with cortical scarring, may represent sequela of prior infections. Trace ascites. Hepatomegaly. Chest X-Ray 07/09/16 00:00 IMPRESSION: NO PNEUMOTHORAX FOLLOWING CENTRAL LINE PLACEMENT. NO ACUTE FINDINGS. Assessment & Plan - Plan Summary Plan Summary: detailed consult note dictated Most likely infectious colitis Treat symptomatically No surgical intervention is neede. Please have her to follow up with GI for out patient colonoscopy.
[2016-07-10] MEDS: MAGNESIUM SULFATE/D5W 100 ML IV SCH ×2 (12:07→15:25)
--- NOTE | 2016-07-10 13:49 | PDOC PROGRESS REPORT ---
Subjective Progress Note for:: 07/10/16 Subjective:: Reason for visit: Follow-up colitis Hospital course: Per H&P "MARK MNANING is a 25 year old female with history of recurrent urinary tract infections, but basically a not overly remarkable chronic medical history otherwise who presents to the emergency room for evaluation of approximate 24-hour history of fever to 104.9, along with cramping "rumbling" abdominal pain, discomfort, and bloating, nonbloody diarrhea , nausea with dry heaves, headache, and neck pain. Primary complaint has been any diarrhea, fever, abdominal pain, headache and neck pain. Patient has been discussed with emergency room physician who evaluated the patient. Was diagnosed with a herpes infection 2 weeks ago and started on what sounds to be an antiviral, having been given samples at the physician's office. Patient uncertain as to exactly which medication she was given. Has 2 or 3 doses left. 2 nights ago, ate at a [employer] with multiple coworkers. Stated the food tasted okay. Uncertain if any coworkers having similar complaints. Travel to [place] last month. No problems until 2 nights ago, along with the herpes diagnosis 2 weeks ago. No personal or family history of Crohn's disease, ulcerative colitis, irritable bowel syndrome, or other GI tract issues. No history of MRSA or C. difficile. No recent antibiotic, other than the above- noted antiviral." Clarification of the above, the patient's mother is now reporting a history of "ischemic colitis", onset in her early 40s. Further details, after her buffet Tuesday night she awoke the next morning feeling "hung over" and admits to drinking heavily that night. However her symptoms did not pass as they usually do and she started to spike temperatures to 104.9 at home. She then developed diffuse myalgias and arthralgias and thought she had "the flu". She developed nausea but no emesis, states her abdomen felt bloated and she started having explosive diarrhea with 6-7 bowel movements over the last 12 hours that look like "her water" without melena, hematochezia. She took some Imodium which actually made her bloating worse and did not slow her stools. She states her genital herpes have cleared. She denies vaginal discharge. She states her sexual partner is clean. Initial Laboratory evaluation shows negative C. difficile, negative influenza A and B, negative HIV. Stool has moderate amount of WBCs. Urinalysis shows some protein and ketones with a moderate amount of blood and a couple of WBCs, urine culture initially showing 50,000 colony forming units of a gram-negative zachary, species and susceptibility still pending. C-reactive protein is quite elevated at 218. Serum H CG is negative. Magnesium is 1.7. And she has a significant leukocytosis at 25,000 with a left shift 4% bands. CT scan of the abdomen and pelvis shows a diffuse pancolitis and hepatomegaly. Hepatitis ABC screen is still pending. She underwent successful subclavian placement of triple-lumen catheter this morning by general surgery due to poor vascular access. Stool studies show significant fecal leukocytes but none of the usual infectious pathogens as culture is negative. Her CRP is markedly elevated but trending down. Subjective: She continues to complain of general malaise, myalgias, arthralgias , her diarrhea slowed, nausea resolved and still feels feverish at times but less so. She denies chest pain, palpitations, dyspnea, rigors, abdominal pain. ROS: per HPI plus a total of 10 systems reviewed, pertinent positives and negatives noted above, remaining systems negative. Physical Exam Vital Signs: Temp Pulse Resp BP Pulse Ox 97.9 F 72 14 99/57 L 99 07/10/16 07:54 07/10/16 07:54 07/10/16 07:54 07/10/16 07:54 07/10/16 07:54 Intake & Output 07/09/16 07/10/16 07/11/16 06:59 06:59 06:59 Intake Total 3000 Output Total 600 Balance 2400 Weight 74.8 kg EXAM GENERAL: NAD; well developed, well nourished; no obese; alert and oriented to person, place, time, situation HEENT: normocephalic, atraumatic; no conjunctival injection, no scleral icterus ; oral mucosa dry; no oral lesions RESPIRATORY: no accessory muscle use, no increased WOB, good air entry bilaterally; no wheezes, rales, rhonchi; no inspiratory crackles CARDIO: no JVD; RRR; no systolic murmur; no tachycardia GI: soft; nondistended; normal bowel sounds; nontender including right upper quadrant; no rebound, rigidity, guarding VASCULAR: no carotid bruit; no abdominal bruit; no pallor; 2+ radial, DP pulse ; normal capillary refill EXTREMITIES: no calf tender; no palpable cords in calf; no clubbing, cyanosis , pedal edema PSYCH: normal affect, normal mood SKIN: warm; moist; no petechiae; no telengectasias; no jaundice; no rash Results Laboratory Results: 07/10/16 06:50 07/10/16 06:50 07/10/16 07/10/16 06:50 06:50 WBC 7.9 RBC 3.85 Hgb 11.3 L Hct 31.9 L MCV 83 MCH 29.4 MCHC 35.5 RDW 13.1 Plt Count 139 L Seg Neutrophils % 61.5 Lymphocytes % 27.0 Monocytes % 8.2 Eosinophils % 2.9 Basophils % 0.4 Absolute Neutrophils 4.8 Absolute Lymphocytes 2.1 Absolute Monocytes 0.6 Absolute Eosinophils 0.2 Absolute Basophils 0.0 Sodium 142.9 Potassium 3.2 L Chloride 111 H Carbon Dioxide 22 Anion Gap 10 BUN 3 L Creatinine 0.61 Est GFR ( Amer) > 60 Est GFR (Non-Af Amer) > 60 Glucose 94 Calcium 8.6 Phosphorus 2.7 Magnesium 1.8 Total Bilirubin 0.4 AST 14 ALT 23 Alkaline Phosphatase 46 C-Reactive Protein 136.8 H Total Protein 5.4 L Albumin 2.8 L Impressions: Abdomen/Pelvis CT 07/09/16 00:00 IMPRESSION: Pancolitis, this may be secondary to acute infection, inflammation or ischemia. Is there any history of ulcerative colitis or Crohn's disease? Evaluation with colonoscopy may be worthwhile. Mild circumferential wall thickening of the urinary bladder, may be due to underdistention versus cystitis. Please correlate with laboratory values/ urinalysis. Smaller size left kidney with cortical scarring, may represent sequela of prior infections. Trace ascites. Hepatomegaly. Chest X-Ray 07/09/16 00:00 IMPRESSION: NO PNEUMOTHORAX FOLLOWING CENTRAL LINE PLACEMENT. NO ACUTE FINDINGS. Assessment & Plan - Diagnosis (1) Pancolitis Is this a current diagnosis for this admission?: Yes (2) Sepsis Qualifiers: Sepsis type: sepsis due to unspecified organism Qualified Code(s): A41.9 - Sepsis, unspecified organism Is this a current diagnosis for this admission?: Yes (3) Coagulopathy Is this a current diagnosis for this admission?: Yes (4) Metabolic acidosis with normal anion gap and bicarbonate losses Is this a current diagnosis for this admission?: Yes (5) Hypokalemia Is this a current diagnosis for this admission?: Yes - Time Time Spent with patient: 25-34 minutes - Plan Summary Plan Summary: She is improving with the above treatment so will continue same for presumptive infectious colitis in spite of a negative stool culture. At some point in the next month she will need gastroenterology evaluation with colonoscopy to evaluate further for the possibility of ulcerative colitis and/or Crohn's disease. If she continues to improve over the next 24 hours, can likely be discharged home in the morning
--- NOTE | 2016-07-10 17:54 | CONSULTATION REPORT E ---
Consultation Report NAME: MARK MANNING : 1990 AGE: 25Y DATE: 324 A TO: DEO NOGUERA M.D. FROM: PAPITO MCCORMICK M.D. Requesting Physician This young 25-year-old female patient has been consulted for evaluation and management of abdominal pain, diarrhea, and nausea. She has a 3-5 day history of abdominal crampy pain and diarrhea. She came to the hospital and was admitted and had admitting studies. CT scan revealed thickening of the colon and colitis, consistent with possibly infectious colitis. The patient has no history of ulcerative colitis or Crohn disease in the past. FAMILY HISTORY: No family history of Crohn's or ulcerative colitis. PHYSICAL EXAMINATION: The patient is awake, alert, oriented. Respiratory examination: Lungs are clear to auscultation. Cardiovascular examination: Heart sounds are regular. No murmurs or gallops. Abdominal examination: Soft abdomen. non tender Extremities warm and perfused. White count 40,000. I reviewed a CT scan, which revealed a mild thickening of the colon, more than likely associated with the diarrhea. CT scan changes suggestive of colitis, most likely infectious colitis. PLAN: Treat her symptomatically. Hydration. She can follow with GI as an outpatient for colonoscopy. DICTATING PHYSICIAN: DEO NOGUERA M.D. [id number] Y#: [id number] ID: [id number] JOB#: [id number] ACCT: [id number] cc:DEO NOGUERA M.D. > MTDD
[2016-07-11] MEDS: METRONIDAZOLE 500 MG/NS RTU 100 ML IV SCH ×2 (01:34→09:14)
[2016-07-11] MEDS: POTASSI CL 20 MEQ/D5NS 1L 1,000 ML IV PRN (05:39)
[2016-07-11 06:14] LABS: ABSOLUTE BASOPHILS # (AUTO) 0.1 10^3/uL (0.0-0.2); ABSOLUTE EOSINOPHILS # (AUTO) 0.3 10^3/uL (0.0-0.6); ABSOLUTE MONOCYTES (AUTO) 0.5 10^3/uL (0.1-1.4); ABSOLUTE NEUT (AUTO) 4.6 10^3/uL (1.7-8.2); BASOPHILS % (AUTO) 0.7 % (0-2); EOSINOPHILS % (AUTO) 3.6 % (0-6); HEMATOCRIT 33.2 % (36.0-47.0); HEMOGLOBIN 11.6 g/dL (12.0-15.5); HGB HCT DIFFERENCE 1.6; LYMPHOCYTES % (AUTO) 26.8 % (13-45); MEAN CORPUSCULAR HEMOGLOBIN 29.1 pg (27.0-33.4); MEAN CORPUSCULAR VOLUME 83 fl (80-97); MONOCYTES % (AUTO) 7.2 % (3-13); RED BLOOD COUNT 3.98 10^6/uL (3.72-5.28); RED CELL DISTRIBUTION WIDTH 13.1 % (11.5-14.0); SEGMENTED NEUTROPHILS % (AUTO) 61.7 % (42-78); WHITE BLOOD COUNT 7.4 10^3/uL (4.0-10.5)
[2016-07-11 06:24] LABS: PROTHROMBIN TIME 16.1 SEC (11.4-15.4)
[2016-07-11 06:42] LABS: ALANINE AMINOTRANSFERASE 23 U/L (9-52); ALKALINE PHOSPHATASE 47 U/L (38-126); ANION GAP 10 (5-19); ASPARTATE AMINO TRANSFERASE 14 U/L (14-36); BILIRUBIN,DIRECT 0.1 mg/dL (0.0-0.4); BILIRUBIN,TOTAL 0.3 mg/dL (0.2-1.3); BLOOD UREA NITROGEN 4 mg/dL (7-20); C-REACTIVE PROTEIN 60.1 mg/L (<10.0); CALCIUM 8.7 mg/dL (8.4-10.2); CARBON DIOXIDE 23 mmol/L (22-30); CHLORIDE 111 mmol/L (98-107); GLUCOSE 96 mg/dL (75-110); PHOSPHORUS 3.7 mg/dL (2.5-4.5); POTASSIUM 3.7 mmol/L (3.6-5.0); SODIUM 143.6 mmol/L (137-145); TOTAL PROTEIN 5.7 g/dL (6.3-8.2)
[2016-07-11] MEDS: ENOXAPARIN SODIUM INJ 40 MG/0.4 ML DISP.SYRIN SUBCUT SCH (08:13)
[2016-07-11] MEDS: FAMOTIDINE INJ/PF 20 MG/2 ML SDV IV SCH (09:10)
[2016-07-11] MEDS: LACTOBACILLUS ACIDOPHILUS 250 MG TAB PO SCH (09:15)
[2016-07-11] MEDS: CIPROFLOXACIN 400 MG/D5W RTU 200 ML IV SCH (10:37)
[2016-07-11 13:12] VITALS: BP 109/55
--- NOTE | 2016-07-11 15:49 | PDOC DISCHARGE SUMMARY ---
General - Admit/Disc Date/PCP Admission Date/Primary Care Provider: 07/09/16 04:02 Discharge Date: 07/11/16 - Discharge Diagnosis (1) Pancolitis Is this a current diagnosis for this admission?: YesSummary: Unclear etiology but presumed infectious due to history and significant fecal leukocytosis. Continue antibiotics for another 10d. stool culture negative for the usual offenders. needs outpt referral to GI for endoscopy and Bx to evaluate for UC or Crohn's disease once she clears this acute inflammatory process in a couple of weeks. pt states clear undestanding and willingness to comply. (2) Sepsis Is this a current diagnosis for this admission?: YesSummary: resolved (3) Coagulopathy Is this a current diagnosis for this admission?: YesSummary: likely nutritional. improved. no evidence for blood loss. (4) Metabolic acidosis with normal anion gap and bicarbonate losses Is this a current diagnosis for this admission?: YesSummary: 2.2 colitis. (5) Hypokalemia Is this a current diagnosis for this admission?: YesSummary: 2.2 GI losses. resolved - Additional Information Resuscitation Status: Full Code Discharge Diet: Regular Discharge Activity: Activity As Tolerated Home Medications: Acetaminophen [Tylenol 325 mg Tablet] 650 mg PO Q4HP PRN tablet 07/11/16 Ciprofloxacin HCl [Cipro 500 mg Tablet] 500 mg PO BID #20 tablet 07/11/16 Lactobacillus Acidophilus [Acidophilus] 1 each PO BIDACLS #60 capsule 07/11/16 Metronidazole 500 mg PO TID #10 tablet 07/11/16 History of Present Illness Patient complains of: abd pain, diarrhea, fever History of Present Illness: MARK MANNING is a 25 year old female with history of recurrent urinary tract infections, but basically a not overly remarkable chronic medical history otherwise who presents to the emergency room for evaluation of approximate 24- hour history of fever to 104.9, along with cramping "rumbling" abdominal pain, discomfort, and bloating, nonbloody diarrhea, nausea with dry heaves, headache, and neck pain. Primary complaint has been any diarrhea, fever, abdominal pain, headache and neck pain. Hospital Course Hospital Course: Was diagnosed with a herpes infection 2 weeks ago and started on what sounds to be an antiviral, having been given samples at the physician's office. Patient uncertain as to exactly which medication she was given. Has 2 or 3 doses left. 2 nights ago, ate at a buffet with multiple coworkers. Stated the food tasted okay. Uncertain if any coworkers having similar complaints. Travel to [place] last month. No problems until 2 nights ago, along with the herpes diagnosis 2 weeks ago. No personal or family history of Crohn's disease, ulcerative colitis, irritable bowel syndrome, or other GI tract issues. No history of MRSA or C. difficile. No recent antibiotic, other than the above- noted antiviral." Clarification of the above, the patient's mother is now reporting a history of "ischemic colitis", onset in her early 40s. Further details, after her buffet Tuesday night she awoke the next morning feeling "hung over" and admits to drinking heavily that night. However her symptoms did not pass as they usually do and she started to spike temperatures to 104.9 at home. She then developed diffuse myalgias and arthralgias and thought she had "the flu". She developed nausea but no emesis, states her abdomen felt bloated and she started having explosive diarrhea with 6-7 bowel movements over the last 12 hours that look like "her water" without melena, hematochezia. She took some Imodium which actually made her bloating worse and did not slow her stools. She states her genital herpes have cleared. She denies vaginal discharge. She states her sexual partner is clean. Initial Laboratory evaluation shows negative C. difficile, negative influenza A and B, negative HIV. Stool has moderate amount of WBCs. Urinalysis shows some protein and ketones with a moderate amount of blood and a couple of WBCs, urine culture initially showing 50,000 colony forming units of a gram-negative zachary, species and susceptibility still pending. C-reactive protein is quite elevated at 218. Serum H CG is negative. Magnesium is 1.7. And she has a significant leukocytosis at 25,000 with a left shift 4% bands. CT scan of the abdomen and pelvis shows a diffuse pancolitis and hepatomegaly. Hepatitis ABC screen is still pending. She underwent successful subclavian placement of triple-lumen catheter this morning by general surgery due to poor vascular access. Stool studies show significant fecal leukocytes but none of the usual infectious pathogens as culture is negative. Her CRP is markedly elevated but trending down. overall she improved with only IV abx and IVFs so hopefully this is indeed an infectious process and not inflammatory one like UC or Crohn' s. she needs to finish a course of abx and f/u wtih GI for endoscopy in a couple of weeks. she is stable for d/c home at this time. Physical Exam Vital Signs: Temp Pulse Resp BP Pulse Ox 98.3 F 82 16 109/55 L 100 07/11/16 12:41 07/11/16 14:00 07/11/16 12:41 07/11/16 12:41 07/11/16 12:41 Intake & Output 07/10/16 07/11/16 07/12/16 06:59 06:59 06:59 Intake Total 3000 3850 Output Total 600 Balance 2400 3850 Weight 74.8 kg 73.6 kg EXAM GENERAL: NAD; well developed, well nourished; no obese; alert and oriented to person, place, time, situation HEENT: normocephalic, atraumatic; no conjunctival injection, no scleral icterus ; oral mucosa dry; no oral lesions RESPIRATORY: no accessory muscle use, no increased WOB, good air entry bilaterally; no wheezes, rales, rhonchi; no inspiratory crackles CARDIO: no JVD; RRR; no systolic murmur; no tachycardia GI: soft; nondistended; normal bowel sounds; nontender including right upper quadrant; no rebound, rigidity, guarding VASCULAR: no carotid bruit; no abdominal bruit; no pallor; 2+ radial, DP pulse ; normal capillary refill EXTREMITIES: no calf tender; no palpable cords in calf; no clubbing, cyanosis , pedal edema PSYCH: normal affect, normal mood SKIN: warm; moist; no petechiae; no telengectasias; no jaundice; no rash Results Laboratory Results: 07/11/16 05:44 07/11/16 05:44 07/11/16 07/11/16 05:44 05:44 WBC 7.4 RBC 3.98 Hgb 11.6 L Hct 33.2 L MCV 83 MCH 29.1 MCHC 35.0 RDW 13.1 Plt Count 192 Seg Neutrophils % 61.7 Lymphocytes % 26.8 Monocytes % 7.2 Eosinophils % 3.6 Basophils % 0.7 Absolute Neutrophils 4.6 Absolute Lymphocytes 2.0 Absolute Monocytes 0.5 Absolute Eosinophils 0.3 Absolute Basophils 0.1 Sodium 143.6 Potassium 3.7 Chloride 111 H Carbon Dioxide 23 Anion Gap 10 BUN 4 L Creatinine 0.60 Est GFR ( Amer) > 60 Est GFR (Non-Af Amer) > 60 Glucose 96 Calcium 8.7 Phosphorus 3.7 Magnesium 2.0 Total Bilirubin 0.3 AST 14 ALT 23 Alkaline Phosphatase 47 C-Reactive Protein 60.1 H Total Protein 5.7 L Albumin 3.0 L Impressions: Abdomen/Pelvis CT 07/09/16 00:00 IMPRESSION: Pancolitis, this may be secondary to acute infection, inflammation or ischemia. Is there any history of ulcerative colitis or Crohn's disease? Evaluation with colonoscopy may be worthwhile. Mild circumferential wall thickening of the urinary bladder, may be due to underdistention versus cystitis. Please correlate with laboratory values/ urinalysis. Smaller size left kidney with cortical scarring, may represent sequela of prior infections. Trace ascites. Hepatomegaly. Chest X-Ray 07/09/16 00:00 IMPRESSION: NO PNEUMOTHORAX FOLLOWING CENTRAL LINE PLACEMENT. NO ACUTE FINDINGS. Qualifiers PATEINT BEING DISCHARGED WITH ANY OF THE FOLLOWING DIAGNOSIS?: No VTE patient discharged on overlapping Therapy?: No Reason(s) for not prescribing Overlap Therapy:: Not indicated Plan Discharge Plan: d/c home; f/u with PCP in one week; f/u GI as instructed; return to the [facility] for worsening condition, hematochezia, increasing abd pain. Time Spent: Greater than 30 Minutes
== END 2016-07-11 16:20 | disposition home or self-care (01) | DRG 872 ==
LOC: ER 18:14 → UNDOADMIN 07-09 02:16 → EH 07-09 02:16 → 3W 07-09 15:04
PROVIDERS: ADMIT Family Medicine; ATTEND Family Medicine
PROC: 02HV33Z Insertion of Infusion Device into Superior Vena Cava, Percutaneous Approach (ICD-10-PCS; principal; 2016-07-09)
DX: A41.9 Sepsis, unspecified organism (principal); K51.00 Ulcerative (chronic) pancolitis without complications; E87.2 Acidosis; D68.9 Coagulation defect, unspecified; E87.6 Hypokalemia; E86.0 Dehydration; B00.9 Herpesviral infection, unspecified; F12.90 Cannabis use, unspecified, uncomplicated; M54.2 Cervicalgia; Z72.89 Other problems related to lifestyle
CPT/HCPCS: 36415; 71010; 74177; 80048; 80053; 80074; 81001; 82803; 83605; 83690; 83735; 84100; 84703; 85025; 85610; 85730; 86140; 86701; 87040; 87045; 87086; 87088; 87186; 87205; 87493; 87804; 89055; 93005; 93010; 96361; 96365; 96375; 99291; J0744; J2405; J2550; J2765; J3475; J3480; J3490; J7030; J7120; S0028